=== PATIENT | female | born 1970 | race Caucasian/White ===

== ENCOUNTER → 2023-01-17 | Outpatient (CLI) | payer OTHER | LOC: MAMMO 12-27 07:30 | DX: Z12.31 Encounter for screening mammogram for malignant neoplasm of breast (principal) ==

== ENCOUNTER → 2024-01-24 | Outpatient (CLI) | payer OTHER | LOC: MAMMO 15:59 | DX: Z12.31 Encounter for screening mammogram for malignant neoplasm of breast (principal) ==